=== PATIENT | female | born 2000 | race Caucasian/White ===

== ENCOUNTER 2022-05-07 22:07 | Emergency (ER) | payer OTHER, BC | END 2022-05-08 | disposition home or self-care (01) | LOC: CSHERS 22:07 | DX: S20.219A Contusion of unspecified front wall of thorax, initial encounter (principal); M79.652 Pain in left thigh; V89.2XXA Person injured in unspecified motor-vehicle accident, traffic, initial encounter | CPT/HCPCS: 71045 ==